=== PATIENT | female | born 1935 | race Caucasian/White ===

== ENCOUNTER → 2017-03-13 | Outpatient (CLI) | payer MEDICARE ==
--- NOTE | 2017-03-14 08:52 | XR ---
EXAMINATION TYPE: XR sinus DATE OF EXAM: 03/13/2017 CLINICAL HISTORY: Facial pain , headache. TECHNIQUE: [place], [place], and lateral image of the skull are obtained. COMPARISON: None. FINDINGS: Mucosal thickening involving the maxillary sinuses and ethmoid air cells. Frontal sinus jb ewhat hypoplastic. Osseous structures intact. No air-fluid levels. IMPRESSION: 1. Correlate for chronic sinusitis.
== END | disposition home or self-care (01) ==
LOC: RADXRMAIN 15:47
PROVIDERS: ATTEND Family Medicine
DX: J01.90 Acute sinusitis, unspecified (principal)
CPT/HCPCS: 70220

== ENCOUNTER 2017-08-10 20:26 | Observation (INO) | payer MEDICARE ==
[2017-08-10] MEDS ORDERED: SODIUM CHLORIDE 0.9% 1,000 ML IV STA (21:32)
[2017-08-10 21:50] LABS: Basophils # (A) 0.1 k/uL (0-0.2); Basophils % (A) 1 %; Eosinophils # (A) 0.2 k/uL (0-0.7); Eosinophils % (A) 2 %; HCT 36.8 % (34.0-46.0); HGB 12.1 gm/dL (11.4-16.0); Lymphocytes # (A) 1.3 k/uL (1.0-4.8); Lymphocytes % (A) 13 %; MCH 27.4 pg (25.0-35.0); Mean Platelet Volume 6.9; Monocytes # (A) 0.7 k/uL (0-1.0); Monocytes % (A) 7 %; Neutrophils # (A) 7.7 k/uL (1.3-7.7); Neutrophils % (A) 76 %; Platelet Count 407 k/uL (150-450); RBC 4.44 m/uL (3.80-5.40); WBC 10.1 k/uL (3.8-10.6)
--- NOTE | 2017-08-10 21:56 | XR ---
EXAMINATION: XR chest 2V DATE AND TIME: 08/10/2017 9:51 PM ORDERING PROVIDER: Kelton Collazo DO CLINICAL INDICATION: Weakness syncope TECHNIQUE: PA and 2 lateral views COMPARISON: None. DESCRIPTION: Pacemaker noted, and EKG leads. The cardiac silhouette is not enlarged. Right paratracheal dense calcifications consistent with healed granulomatous process; calcified pulmo nary nodules are also noted, also consistent with healed granulomatous process. The lungs are otherwise clear and well expanded. The pleural spaces are negative. The skeletal structures are negative for acute findings. The soft tissues are unremarkable. IMPRESSION: NO ACUTE RADIOGRAPHIC PROCESS.
[2017-08-10 22:08] LABS: D-Dimer 2.25 mg/L FEU (<0.60); Partial Thromboplastin Time 22.2 sec (22.0-30.0); Prothrombin Time 9.6 sec (9.0-12.0)
[2017-08-10 22:19] LABS: ALT 23 U/L (9-52); AST 47 U/L (14-36); Albumin 3.6 g/dL (3.5-5.0); Alkaline Phosphatase 52 U/L (38-126); Anion Gap 12 mmol/L; Blood Urea Nitrogen 24 mg/dL (7-17); Calcium 9.1 mg/dL (8.4-10.2); Carbon Dioxide 28 mmol/L (22-30); Chloride 96 mmol/L (98-107); Glucose 139 mg/dL (74-99); Phosphorus 5.2 mg/dL (2.5-4.5); Potassium 4.9 mmol/L (3.5-5.1); Sodium 136 mmol/L (137-145); Total Bilirubin 0.5 mg/dL (0.2-1.3); Total Protein 6.3 g/dL (6.3-8.2)
[2017-08-10 22:28] LABS: Creatine Kinase 81 U/L (30-135)
--- NOTE | 2017-08-10 22:30 | ED ---
General Adult HPI - General Chief complaint: Syncope Stated complaint: syncope Time Seen by Provider: 08/10/17 21:31 Source: patient, RN notes reviewed, old records reviewed Mode of arrival: EMS Limitations: no limitations - History of Present Illness Initial comments: This is an 81-year-old female ER for evaluation regards to syncopal event. Patient has history of pacemaker for unknown reason, family states patient is grossly secondary syncopal events. Patient has no syncope since original event. Denies headache chest pain shortness of breath or abdominal pain. Patient states her diet nap been decreased today. She does not have any complaints currently. - Related Data Home Medications Medication Instructions Recorded Confirmed Calcium Complete 1 tab PO BID 10/21/13 08/10/17 Cyanocobalamin [Vitamin B-12] 500 mcg PO DAILY 10/21/13 08/10/17 Fish Oil/Dha/Epa [Fish Oil 1,200 1,000 mg PO DAILY 10/21/13 08/10/17 mg Fish Oil] Folic Acid 1 mg PO HS 10/21/13 08/10/17 L.acidoph/B.long/L.plant/B.lac 1 cap PO DAILY 10/21/13 08/10/17 [Probiotic Acidophilus Beads] Multivitamin [Multivitamins] 1 tab PO DAILY 10/21/13 08/10/17 Pyridoxine [Vitamin B-6] 50 mg PO DAILY 10/21/13 08/10/17 Ibuprofen [Motrin] 200 mg PO Q4H 10/22/13 08/10/17 Magnesium Gluconate [Magonate] 500 mg PO DAILY 03/17/15 08/10/17 Potassium 99 mg PO DAILY 03/17/15 08/10/17 Minocycline HCl 100 mg PO MOWEFR 08/10/17 08/10/17 Turmeric Root Extract [Turmeric] 500 mg PO DAILY 08/10/17 08/10/17 predniSONE 5 mg PO HS 08/10/17 08/11/17 Allergies Allergy/AdvReac Type Severity Reaction Status Date / Time celecoxib [From Celebrex] AdvReac Swelling Verified 08/10/17 20:49 methotrexate AdvReac Unknown Verified 08/10/17 20:49 Penicillins AdvReac Rash/Hives Verified 08/11/17 01:25 Review of Systems ROS Statement: Those systems with pertinent positive or pertinent negative responses have been documented in the HPI. ROS Other: All systems not noted in ROS Statement are negative. Past Medical History Past Medical History: Rheumatoid Arthritis (RA) Additional Past Medical History / Comment(s): hx arrhythmia/bradycardia, arthritis, Pacemaker, UTI History of Any Multi-Drug Resistant Organisms: None Reported Past Surgical History: Cholecystectomy, Hysterectomy, Pacemaker, Tonsillectomy Additional Past Surgical History / Comment(s): knee surgery jeremy, thyroid surgery (nodule on parathyroid removed) Past Anesthesia/Blood Transfusion Reactions: No Reported Reaction Type of Cardiac Device: Unknown Device Placement Date:: unknown Past Psychological History: Anxiety Smoking Status: Former smoker Past Alcohol Use History: None Reported Past Drug Use History: None Reported - Past Family History Mother Family Medical History: Dementia, Diabetes Mellitus Brother(s) Family Medical History: Dementia, Diabetes Mellitus General Exam Limitations: no limitations General appearance: alert, in no apparent distress Head exam: Present: atraumatic, normocephalic, normal inspection Eye exam: Present: normal appearance, PERRL, EOMI. Absent: scleral icterus, conjunctival injection, periorbital swelling ENT exam: Present: normal exam, mucous membranes moist Neck exam: Present: normal inspection. Absent: tenderness, meningismus, lymphadenopathy Respiratory exam: Present: normal lung sounds bilaterally. Absent: respiratory distress, wheezes, rales, rhonchi, stridor Cardiovascular Exam: Present: regular rate, normal rhythm, normal heart sounds. Absent: systolic murmur, diastolic murmur, rubs, gallop, clicks GI/Abdominal exam: Present: soft, normal bowel sounds. Absent: distended, tenderness, guarding, rebound, rigid Extremities exam: Present: normal inspection, full ROM, normal capillary refill. Absent: tenderness, pedal edema, joint swelling, calf tenderness Back exam: Present: normal inspection Neurological exam: Present: alert, oriented X3, CN II-XII intact Psychiatric exam: Present: normal affect, normal mood Skin exam: Present: warm, dry, intact, normal color. Absent: rash Course Vital Signs 08/10/17 08/10/17 08/10/17 20:33 20:45 22:38 Temperature 98.2 F 97.8 F Pulse Rate 89 71 88 Respiratory 18 18 18 Rate Blood Pressure 141/89 143/68 130/95 O2 Sat by Pulse 98 98 97 Oximetry 08/11/17 00:56 Temperature 97.3 F L Pulse Rate 79 Respiratory 18 Rate Blood Pressure 147/67 O2 Sat by Pulse 98 Oximetry - Reevaluation(s) Reevaluation #1: Unable to interrogate pacemaker here at this time. Patient pacemaker company is called and they will interrogate in the morning Reevaluation #2: main complaint is diffuse body pain, no episodes of syncope here in the ER EKG Findings - EKG Comments: EKG Findings:: EKG shows A. fib rate of 73, QRS 90, QTc 409 Medical Decision Making - Medical Decision Making 81 female the ER for evaluation of syncopal event, syncope or on 10 minutes. No acute cause found, patient will be admitted for pacemaker interrogation - Lab Data Result diagrams: 08/10/17 20:45 08/10/17 20:45 Lab Results 08/10/17 08/10/17 08/10/17 Range/Units 20:45 20:45 20:45 WBC 10.1 (3.8-10.6) k/uL RBC 4.44 (3.80-5.40) m/uL Hgb 12.1 (11.4-16.0) gm/dL Hct 36.8 (34.0-46.0) % MCV 83.0 (80.0-100.0) fL MCH 27.4 (25.0-35.0) pg MCHC 33.0 (31.0-37.0) g/dL RDW 13.0 (11.5-15.5) % Plt Count 407 (150-450) k/uL Neutrophils % 76 % Lymphocytes % 13 % Monocytes % 7 % Eosinophils % 2 % Basophils % 1 % Neutrophils # 7.7 (1.3-7.7) k/uL Lymphocytes # 1.3 (1.0-4.8) k/uL Monocytes # 0.7 (0-1.0) k/uL Eosinophils # 0.2 (0-0.7) k/uL Basophils # 0.1 (0-0.2) k/uL PT (9.0-12.0) sec INR (<1.2) APTT (22.0-30.0) sec D-Dimer (<0.60) mg/L FEU Sodium 136 L (137-145) mmol/L Potassium 4.9 (3.5-5.1) mmol/L Chloride 96 L (98-107) mmol/L Carbon Dioxide 28 (22-30) mmol/L Anion Gap 12 mmol/L BUN 24 H (7-17) mg/dL Creatinine 0.80 (0.52-1.04) mg/dL Est GFR (MDRD) Af Amer >60 (>60 ml/min/1.73 sqM) Est GFR (MDRD) Non-Af >60 (>60 ml/min/1.73 sqM) Glucose 139 H (74-99) mg/dL Calcium 9.1 (8.4-10.2) mg/dL Phosphorus 5.2 H (2.5-4.5) mg/dL Magnesium 2.3 (1.6-2.3) mg/dL Total Bilirubin 0.5 (0.2-1.3) mg/dL AST 47 H (14-36) U/L ALT 23 (9-52) U/L Alkaline Phosphatase 52 (38-126) U/L Total Creatine Kinase 81 (30-135) U/L CK-MB (CK-2) 1.3 (0.0-2.4) ng/mL CK-MB (CK-2) Rel Index 1.6 Troponin I <0.012 (0.000-0.034) ng/mL Total Protein 6.3 (6.3-8.2) g/dL Albumin 3.6 (3.5-5.0) g/dL Urine Color Urine Appearance (Clear) Urine pH (5.0-8.0) Ur Specific Band[place] (1.001-1.035) Urine Protein (Negative) Urine Glucose (UA) (Negative) Urine Ketones (Negative) Urine Blood (Negative) Urine Nitrite (Negative) Urine Bilirubin (Negative) Urine Urobilinogen (<2.0) mg/dL Ur Leukocyte Esterase (Negative) Urine RBC (0-5) /hpf Urine WBC (0-5) /hpf Urine Bacteria (None) /hpf Hyaline Casts (0-2) /lpf Urine Mucus (None) /hpf Urine Yeast (Budding) (None) /hpf 08/10/17 08/10/17 Range/Units 20:45 22:48 WBC (3.8-10.6) k/uL RBC (3.80-5.40) m/uL Hgb (11.4-16.0) gm/dL Hct (34.0-46.0) % MCV (80.0-100.0) fL MCH (25.0-35.0) pg MCHC (31.0-37.0) g/dL RDW (11.5-15.5) % Plt Count (150-450) k/uL Neutrophils % % Lymphocytes % % Monocytes % % Eosinophils % % Basophils % % Neutrophils # (1.3-7.7) k/uL Lymphocytes # (1.0-4.8) k/uL Monocytes # (0-1.0) k/uL Eosinophils # (0-0.7) k/uL Basophils # (0-0.2) k/uL PT 9.6 (9.0-12.0) sec INR 1.0 (<1.2) APTT 22.2 (22.0-30.0) sec D-Dimer 2.25 H (<0.60) mg/L FEU Sodium (137-145) mmol/L Potassium (3.5-5.1) mmol/L Chloride (98-107) mmol/L Carbon Dioxide (22-30) mmol/L Anion Gap mmol/L BUN (7-17) mg/dL Creatinine (0.52-1.04) mg/dL Est GFR (MDRD) Af Amer (>60 ml/min/1.73 sqM) Est GFR (MDRD) Non-Af (>60 ml/min/1.73 sqM) Glucose (74-99) mg/dL Calcium (8.4-10.2) mg/dL Phosphorus (2.5-4.5) mg/dL Magnesium (1.6-2.3) mg/dL Total Bilirubin (0.2-1.3) mg/dL AST (14-36) U/L ALT (9-52) U/L Alkaline Phosphatase (38-126) U/L Total Creatine Kinase (30-135) U/L CK-MB (CK-2) (0.0-2.4) ng/mL CK-MB (CK-2) Rel Index Troponin I (0.000-0.034) ng/mL Total Protein (6.3-8.2) g/dL Albumin (3.5-5.0) g/dL Urine Color Yellow Urine Appearance Clear (Clear) Urine pH 7.5 (5.0-8.0) Ur Specific [place] 1.007 (1.001-1.035) Urine Protein Negative (Negative) Urine Glucose (UA) Negative (Negative) Urine Ketones Negative (Negative) Urine Blood Negative (Negative) Urine Nitrite Negative (Negative) Urine Bilirubin Negative (Negative) Urine Urobilinogen <2.0 (<2.0) mg/dL Ur Leukocyte Esterase Small H (Negative) Urine RBC <1 (0-5) /hpf Urine WBC 12 H (0-5) /hpf Urine Bacteria Rare H (None) /hpf Hyaline Casts 1 (0-2) /lpf Urine Mucus Rare H (None) /hpf Urine Yeast (Budding) Occasional H (None) /hpf - Radiology Data Radiology results: report reviewed (Chest x-ray and CTA chest are negative), image reviewed Disposition Clinical Impression: Vasovagal syncope, Syncope, Encounter for interrogation of cardiac pacemaker Disposition: ADMITTED IP TO THIS [facility] Condition: Undetermined
[2017-08-10 22:40] LABS: Creatine Kinase MB 1.3 ng/mL (0.0-2.4); Troponin I <0.012 ng/mL (0.000-0.034)
[2017-08-10 23:00] LABS: Appearance,Urine Clear (Clear); Bacteria,Urine Rare /hpf; Bilirubin,Urine Negative (Negative); Blood,Urine Negative (Negative); Budding Yeast,Urine Occasional /hpf; Color,Urine Yellow; Glucose,Urine (UA) Negative (Negative); Hyaline Casts,Urine 1 /lpf (0-2); Ketones,Urine Negative (Negative); Leukocyte Esterase,Urine Small (Negative); Mucus,Urine Rare /hpf; PH, Urine 7.5 (5.0-8.0); Protein,Urine Negative (Negative); RBC,Urine <1 /hpf (0-5); Specific Gravity,Urine 1.007 (1.001-1.035); Urobilinogen,Urine <2.0 mg/dL (<2.0); WBC,Urine 12 /hpf (0-5)
[2017-08-10] MEDS ORDERED: NITROGLYCERIN SL TABS 0.4 MG TAB SUBLINGUAL PRN (23:34)
[2017-08-10] MEDS ORDERED: RX INFO: IV CONTRAST WAS GIVEN 1 EACH MISC MISCELLANE PRN (23:34)
[2017-08-10] MEDS ORDERED: MORPHINE SULFATE 4 MG/ML SYRINGE IVP STA (23:35)
[2017-08-10] MEDS ORDERED: ACETAMINOPHEN TAB 325 MG TAB PO STA (23:51)
[2017-08-10] MEDS ORDERED: KETOROLAC 30 MG/ML 1 ML VIAL IVP STA (23:59)
--- NOTE | 2017-08-11 00:33 | CT ---
EXAMINATION TYPE: CT angio chest DATE OF EXAM: 08/11/2017 12:18 AM COMPARISON: NONE HISTORY: chest pain and elevated D dimer CT DLP: 329.50 mGycm Automated exposure control for dose reduction was used. CONTRAST: CTA scan of the thorax is performed with IV Contrast, patient injected with 75 mL of Omnipaque 350, p ulmonary embolism protocol. There are 3-D post processed images.. FINDINGS: There is coarse subpleural interstitial density at the posterior lung bases. There is no pleural effu sunil. There is no pericardial effusion. Heart is slightly enlarged. Thoracic aorta is atheromatous. T here is mild aneurysm of ascending aorta that measures 4.5 cm. Descending aorta measures 3 cm. There is no mediastinal adenopathy. I see no filling defects in the pulmonary arteries. There is no evidence of a pulmonary mass. There a re no hilar masses. There is spurring in the thoracic spine. IMPRESSION: NO EVIDENCE OF PULMONARY EMBOLISM. MILD ANEURYSM OF THE ASCENDING AORTA. PULMONARY FIBROTIC CHANGES.
[2017-08-11] MEDS ORDERED: MORPHINE SULFATE 4 MG/ML SYRINGE IVP STA (00:48)
[2017-08-11 01:35] VITALS: BMI 22.8
[2017-08-11] MEDS: traMADol 50 MG TAB PO PRN ×2 (06:04→10:11)
[2017-08-11 08:07] VITALS: PULSE 71
[2017-08-11 11:11] VITALS: RESP 16; TEMP 97.6
[2017-08-11] MEDS ORDERED: SODIUM CHLORIDE 0.9% 1,000 ML IV ONE (11:50)
[2017-08-11 13:39] VITALS: BP 114/66
--- NOTE | 2017-08-11 14:40 | P.HPIM ---
History of Present Illness H&P Date: 08/11/17 Chief Complaint: Syncope HISTORY AND PHYSICAL AND DISCHARGE SUMMARY: This is an 81-year-old female patient of Dr. Lao with past medical history of advanced rheumatoid arthritis on prednisone and minocycline, chronic anemia, history of small bowel obstruction. Patient was with her son at home and sitting at the dinner table when she seemed to drift up in lean to the right. There was no fall or trauma. She did not hit her head. They used her med alert and the directions were for her son to start compressions which she did lightly. EMS arrived and 10 minutes and found her blood sugar to be 181 and blood pressure 60/40. She came into [facility] emergency center and mental status returned to normal. She had no residual weakness. Patient thought that she was knocked out for about 1 minute. She denies having any nausea vomiting or diarrhea but didn't drink very much for the day before. There was no incontinence of urine and no seizure activity noted. She was given 1 L of IV fluids in the emergency center and admitted to the selective care unit. Chest x-ray showed no acute process. CTA of the chest shows no pulmonary embolism. Mild aneurysm of the ascending aorta. Pulmonary fibrotic changes. EKG was atrial fibrillation rate controlled. Patient has been seen by cardiology and pacemaker has been interrogated. Troponins have been negative on 3 draws. Blood pressure is running on the low side and patient is not on antihypertensives. Patient will be given 1 L of fluid and discharge home today. Patient happens to mention that she has a wound on her right second toe. Full culture will be obtained and patient would be discharged home on Bactrim and follow-up with Dr. Lao next week. Patient will be discharged home today in stable condition. Patient is requesting prescription for tramadol which will be provided. Discharge Medication List Calcium Complete 1 tab PO BID 10/21/13 [History] Cyanocobalamin [Vitamin B-12] 500 mcg PO DAILY 10/21/13 [History] Fish Oil/Dha/Epa [Fish Oil 1,200 mg Fish Oil] 1,000 mg PO DAILY 10/21/13 [ History] Folic Acid 1 mg PO HS 10/21/13 [History] L.acidoph/B.long/L.plant/B.lac [Probiotic Acidophilus Beads] 1 cap PO DAILY 10/30 [History] Multivitamin [Multivitamins] 1 tab PO DAILY 10/21/13 [History] Pyridoxine [Vitamin B-6] 50 mg PO DAILY 10/21/13 [History] Ibuprofen [Motrin] 200 mg PO Q4H 10/22/13 [History] Magnesium Gluconate [Magonate] 500 mg PO DAILY 03/17/15 [History] Potassium 99 mg PO DAILY 03/17/15 [History] Minocycline HCl 100 mg PO MOWEFR 08/10/17 [History] Turmeric Root Extract [Turmeric] 500 mg PO DAILY 08/10/17 [History] predniSONE 5 mg PO HS 08/10/17 [History] Sulfamethox-Tmp 800-160Mg [Bactrim DS 800-160 mg] 1 tab PO Q12HR #14 tab [Rx] traMADol HCL [Ultram] 50 mg PO Q6HR PRN #28 tab 08/11/17 [Rx] Review of Systems All systems: negative Constitutional: Denies anorexia, Denies chills, Denies fatigue, Denies fever, Denies poor appetite Eyes: denies blurred vision, denies pain Ears, nose, mouth and throat: Denies headache, Denies sore throat Cardiovascular: Reports syncope, Denies chest pain, Denies decreased exercise tolerance, Denies dyspnea on exertion, Denies leg edema, Denies lightheadedness , Denies shortness of breath Respiratory: Denies cough, Denies cough with sputum, Denies dyspnea, Denies excessive sputum, Denies hemoptysis, Denies home oxygen, Denies wheezing Gastrointestinal: Denies abdominal pain, Denies diarrhea, Denies nausea, Denies vomiting Genitourinary: Denies dysuria, Denies hematuria Musculoskeletal: Denies myalgias Integumentary: Reports wounds, Denies pruritus, Denies rash Neurological: Denies numbness, Denies weakness Psychiatric: Denies anxiety, Denies depression Endocrine: Denies fatigue, Denies weight change Past Medical History Past Medical History: Rheumatoid Arthritis (RA) Additional Past Medical History / Comment(s): hx arrhythmia/bradycardia, arthritis, Pacemaker, UTI History of Any Multi-Drug Resistant Organisms: None Reported Past Surgical History: Cholecystectomy, Hysterectomy, Pacemaker, Tonsillectomy Additional Past Surgical History / Comment(s): knee surgery jeremy, thyroid surgery (nodule on parathyroid removed) Past Anesthesia/Blood Transfusion Reactions: No Reported Reaction Type of Cardiac Device: Unknown Device Placement Date:: unknown Past Psychological History: Anxiety Smoking Status: Former smoker Past Alcohol Use History: None Reported Past Drug Use History: None Reported Additional Drug Use History / Comment(s): H was smoking many years ago. No alcohol use or abuse. Patient is and lives alone. - Past Family History Mother Family Medical History: Dementia, Diabetes Mellitus Brother(s) Family Medical History: Dementia, Diabetes Mellitus Medications and Allergies Home Medications Medication Instructions Recorded Confirmed Type Calcium Complete 1 tab PO BID 10/21/13 08/10/17 History Cyanocobalamin [Vitamin B-12] 500 mcg PO DAILY 10/21/13 08/10/17 History Fish Oil/Dha/Epa [Fish Oil 1,200 1,000 mg PO DAILY 10/21/13 08/10/17 History mg Fish Oil] Folic Acid 1 mg PO HS 10/21/13 08/10/17 History L.acidoph/B.long/L.plant/B.lac 1 cap PO DAILY 10/21/13 08/10/17 History [Probiotic Acidophilus Beads] Multivitamin [Multivitamins] 1 tab PO DAILY 10/21/13 08/10/17 History Pyridoxine [Vitamin B-6] 50 mg PO DAILY 10/21/13 08/10/17 History Ibuprofen [Motrin] 200 mg PO Q4H 10/22/13 08/10/17 History Magnesium Gluconate [Magonate] 500 mg PO DAILY 03/17/15 08/10/17 History Potassium 99 mg PO DAILY 03/17/15 08/10/17 History Minocycline HCl 100 mg PO MOWEFR 08/10/17 08/10/17 History Turmeric Root Extract [Turmeric] 500 mg PO DAILY 08/10/17 08/10/17 History predniSONE 5 mg PO HS 08/10/17 08/11/17 History Sulfamethox-Tmp 800-160Mg [Bactrim 1 tab PO Q12HR #14 tab 08/11/17 Rx DS 800-160 mg] traMADol HCL [Ultram] 50 mg PO Q6HR PRN #28 tab 08/11/17 Rx Allergies Allergy/AdvReac Type Severity Reaction Status Date / Time celecoxib [From Celebrex] AdvReac Swelling Verified 08/10/17 20:49 methotrexate AdvReac Unknown Verified 08/10/17 20:49 Penicillins AdvReac Rash/Hives Verified 08/11/17 01:25 Physical Exam Vitals: Vital Signs Temp Pulse Pulse Resp BP BP BP 08/11/17 13:38 124/66 111/61 08/11/17 11:08 97.6 F 71 16 92/49 08/11/17 08:50 08/11/17 08:00 97.4 F L 71 14 08/11/17 07:58 78 18 91/49 83/44 08/11/17 04:00 97.3 F L 72 16 08/11/17 00:56 97.3 F L 79 18 147/67 08/10/17 22:38 97.8 F 88 18 130/95 08/10/17 20:45 71 18 143/68 08/10/17 20:33 98.2 F 89 18 141/89 BP BP Pulse Ox 08/11/17 13:38 114/66 08/11/17 11:08 98 08/11/17 08:50 97 08/11/17 08:00 102/48 97 08/11/17 07:58 102/48 08/11/17 04:00 113/58 97 08/11/17 00:56 98 08/10/17 22:38 97 08/10/17 20:45 98 08/10/17 20:33 98 Intake and Output 08/10/17 08/11/17 08/11/17 22:59 06:59 14:59 Intake Total 540 Balance 540 Intake: Oral 540 Other: Voiding Method Toilet Toilet Bedpan # Voids 1 Weight 63.503 kg 64.4 kg - Constitutional General appearance: average body habitus, cooperative, no disheveled, no mild distress, no morbidly obese, no no acute distress - EENT Eyes: PERRLA - Respiratory Respiratory: bilateral: CTA - Cardiovascular Rhythm: irregularly irregular Heart sounds: normal: S1, S2 - Gastrointestinal General gastrointestinal: no absent bowel sounds, no decreased bowel sounds, no distended, no hepatomegaly, no hyperactive bowel sounds, normal bowel sounds, no organomegaly, no rigid, no scaphoid, soft, no splenomegaly, no tenderness, no umbilical hernia, no ventral hernia - Integumentary Integumentary: ulcer - Neurologic Neurologic: CNII-XII intact - Psychiatric Psychiatric: A&O x's 3, appropriate affect, intact judgment & insight Results CBC & Chem 7: 08/10/17 20:45 08/10/17 20:45 Labs: Abnormal Lab Results - Last 24 Hours (Table) 08/10/17 08/10/17 08/10/17 Range/Units 20:45 20:45 22:48 D-Dimer 2.25 H (<0.60) mg/L FEU Sodium 136 L (137-145) mmol/L Chloride 96 L (98-107) mmol/L BUN 24 H (7-17) mg/dL Glucose 139 H (74-99) mg/dL Phosphorus 5.2 H (2.5-4.5) mg/dL AST 47 H (14-36) U/L Ur Leukocyte Esterase Small H (Negative) Urine WBC 12 H (0-5) /hpf Urine Bacteria Rare H (None) /hpf Urine Mucus Rare H (None) /hpf Urine Yeast (Budding) Occasional H (None) /hpf Thrombosis Risk Factor Assmnt - Choose All That Apply Any of the Below Risk Factors Present?: No Each Risk Factor Represents 3 Points: Age 75 years or older Other congenital or acquired thrombophilia - If yes, enter type in comment: No Thrombosis Risk Factor Assessment Total Risk Factor Score: 3 Thrombosis Risk Factor Assessment Level: Moderate Risk Assessment and Plan Plan: 1. Syncopal episode most likely from vasovagal. Pacemaker has been interrogated. Patient had full return to consciousness, no seizure activity was noted. Patient is noted to have hypotension. Patient will be provided 1 L IV fluids and then discharged home today. 2. Advanced rheumatoid arthritis currently on no site clean and prednisone, stable. 3. Chronic back pain. Patient's been started on tramadol. 4. History of chronic atrial fibrillation status post pacemaker, stable. 5. Right foot wound second toe. Patient placed on Bactrim and culture obtained. Patient placed as an observation status. Discharge plan: Return home Impression and plan of care have been directed as dictated by the signing physician. Radha Busch nurse practitioner acting as scribe for signing physician.
== END 2017-08-11 13:37 | disposition home or self-care (01) ==
LOC: EC 20:26 → 6SEL 23:34
PROVIDERS: ADMIT Internal Medicine; ATTEND Internal Medicine
DX: R55 Syncope and collapse (principal); Z45.018 Encounter for adjustment and management of other part of cardiac pacemaker; I95.9 Hypotension, unspecified; M06.9 Rheumatoid arthritis, unspecified; G89.29 Other chronic pain; M54.9 Dorsalgia, unspecified; I48.2 Chronic atrial fibrillation; S90.934A Unspecified superficial injury of right lesser toe(s), initial encounter; M19.90 Unspecified osteoarthritis, unspecified site; F41.9 Anxiety disorder, unspecified; D64.9 Anemia, unspecified; I71.2 Thoracic aortic aneurysm, without rupture; R00.1 Bradycardia, unspecified; Z79.2 Long term (current) use of antibiotics; Z79.1 Long term (current) use of non-steroidal anti-inflammatories (NSAID); Z79.52 Long term (current) use of systemic steroids; Z79.899 Other long term (current) drug therapy; Z88.0 Allergy status to penicillin; Z88.8 Allergy status to other drugs, medicaments and biological substances; Z87.440 Personal history of urinary (tract) infections; Z87.891 Personal history of nicotine dependence; Z83.3 Family history of diabetes mellitus; Z82.0 Family history of epilepsy and other diseases of the nervous system
CPT/HCPCS: 99285; 93288; 96361 ×2; 96374; 96375 ×2; 36415; 94760; 93005; 85379; 80053; 82550; 82553; 83735; 84100; 84484 ×2; 85025; 85610; 85730; 81001; 87070; 87086; 87205; 87077 ×2; 87186 ×2; 71046; 71275; G0378 ×2; J2270; Q9967; J1885

== ENCOUNTER 2018-08-08 20:00 | Emergency (ER) | payer MEDICARE, OTHER ==
[2018-08-08] MEDS ORDERED: SODIUM CHLORIDE 0.9% 500 ML 500 ML IV STA (21:35)
[2018-08-08] MEDS ORDERED: SODIUM CHLORIDE 0.9% 1,000 ML IV STA (21:35)
[2018-08-08 21:56] LABS: Basophils # (A) 0.1 k/uL (0-0.2); Basophils % (A) 1 %; Eosinophils # (A) 0.3 k/uL (0-0.7); Eosinophils % (A) 3 %; HCT 44.1 % (34.0-46.0); HGB 14.3 gm/dL (11.4-16.0); Lymphocytes # (A) 1.4 k/uL (1.0-4.8); Lymphocytes % (A) 14 %; MCH 29.3 pg (25.0-35.0); MCHC 32.4 g/dL (31.0-37.0); MCV 90.5 fL (80.0-100.0); Monocytes # (A) 0.5 k/uL (0-1.0); Monocytes % (A) 5 %; Neutrophils # (A) 7.6 k/uL (1.3-7.7); Neutrophils % (A) 76 %; Platelet Count 273 k/uL (150-450); RBC 4.87 m/uL (3.80-5.40); RDW 14.4 % (11.5-15.5)
[2018-08-08 22:05] LABS: ALT 32 U/L (9-52); AST 29 U/L (14-36); Albumin 3.7 g/dL (3.5-5.0); Alkaline Phosphatase 74 U/L (38-126); Anion Gap 9 mmol/L; Blood Urea Nitrogen 19 mg/dL (7-17); Calcium 8.8 mg/dL (8.4-10.2); Carbon Dioxide 28 mmol/L (22-30); Chloride 93 mmol/L (98-107); Glucose 147 mg/dL (74-99); Magnesium 2.2 mg/dL (1.6-2.3); Potassium 4.4 mmol/L (3.5-5.1); Sodium 130 mmol/L (137-145); Total Bilirubin 0.6 mg/dL (0.2-1.3); Total Protein 6.4 g/dL (6.3-8.2)
[2018-08-08 22:08] LABS: Creatine Kinase 50 U/L (30-135)
[2018-08-08 22:13] LABS: Appearance,Urine Clear (Clear); Bilirubin,Urine Negative (Negative); Blood,Urine Negative (Negative); Color,Urine Light Yellow; Glucose,Urine (UA) Negative (Negative); Ketones,Urine Negative (Negative); Leukocyte Esterase,Urine Negative (Negative); Nitrite,Urine Negative (Negative); Protein,Urine Negative (Negative); Specific Gravity,Urine 1.008 (1.001-1.035); Urobilinogen,Urine <2.0 mg/dL (<2.0)
[2018-08-08 22:14] LABS: INR 0.9 (<1.2); Prothrombin Time 9.7 sec (9.0-12.0)
[2018-08-08 22:16] LABS: Partial Thromboplastin Time 21.2 sec (22.0-30.0)
[2018-08-08 22:21] LABS: Creatine Kinase MB 1.1 ng/mL (0.0-2.4); Troponin I <0.012 ng/mL (0.000-0.034)
--- NOTE | 2018-08-08 23:07 | ED ---
General Adult HPI - General Chief complaint: Syncope Stated complaint: Syncope Time Seen by Provider: 08/08/18 20:42 Source: patient, family, EMS, RN notes reviewed, old records reviewed Mode of arrival: ambulatory Limitations: no limitations - History of Present Illness Initial comments: chief complaint and history of present illness this is an 82-year-old female who while having dinner her head fell forward. Her family member stated that he did not appears though she is breathing deeper to the floor he started doing CPR he states that he push on her chest approximately 100 times she took a breath and yawned and came to. She has amnesia for the event. Family reports this is the fifth time this happened in several years the last time was one year ago. The patient does have an on demand pacemaker. Patient denies any headache currently no chest pain palpitations or shortness of breath. Patient states her significant problems in the past as well as been hyponatremia. - Related Data Home Medications Medication Instructions Recorded Confirmed Acetaminophen Tab [Tylenol Tab] 500 - 1,000 mg PO Q6H PRN 08/08/18 08/08/18 Latanoprost [Xalatan 0.005%] 1 drop LEFT EYE DAILY 08/08/18 08/08/18 Timolol 0.5% Ophth Soln [Timoptic 1 drop BOTH EYES DAILY 08/08/18 08/08/18 0.5% Ophth Soln] predniSONE 5 mg PO QID 08/08/18 08/08/18 Allergies Allergy/AdvReac Type Severity Reaction Status Date / Time celecoxib [From Celebrex] AdvReac Swelling Verified 08/08/18 20:28 methotrexate AdvReac Unknown Verified 08/08/18 20:28 Penicillins AdvReac Rash/Hives Verified 08/08/18 20:28 Review of Systems ROS Statement: Those systems with pertinent positive or pertinent negative responses have been documented in the HPI. review of systems. Currently the patient is alert and oriented. Has no complaints. States she was unaware of the events that happened at home. She is denying headache or visual acuity changes no chest pain shortness of breath no GI/ problems no neuro deficits. Past medical problems significant for rheumatoid arthritis and history of arrhythmia and bradycardia for which she has an on demand pacemaker. The patient's surgeries include cholecystectomy, hysterectomy, atrial pacemaker on demand, tonsillectomy and bilateral knee surgeries. Family history no cancers. Patient has ALLERGIES to Celebrex, methotrexate and penicillin. She quit smoking 30 years ago denies alcohol use. ROS Other: All systems not noted in ROS Statement are negative. Past Medical History Past Medical History: Rheumatoid Arthritis (RA) Additional Past Medical History / Comment(s): hx arrhythmia/bradycardia, arthritis, Pacemaker, UTI, low sodium History of Any Multi-Drug Resistant Organisms: None Reported Past Surgical History: Cholecystectomy, Hysterectomy, Pacemaker, Tonsillectomy Additional Past Surgical History / Comment(s): knee surgery jeremy, thyroid surgery (nodule on parathyroid removed) Past Anesthesia/Blood Transfusion Reactions: No Reported Reaction Type of Cardiac Device: Unknown Device Placement Date:: unknown Past Psychological History: Anxiety Smoking Status: Former smoker Past Alcohol Use History: None Reported Past Drug Use History: None Reported - Past Family History Mother Family Medical History: Dementia, Diabetes Mellitus Brother(s) Family Medical History: Dementia, Diabetes Mellitus General Exam - General Exam Comments Initial Comments: General: The patient is awake and alert, in no distress, and does not appear acutely ill. vital signs shows a temperature 97.8 pulse 55 respiratory rate 18 pulse ox 132/69 and room pulse ox of 98. Eye: Pupils are equal, round and reactive to light, extra-ocular movements are intact ; there is normal conjunctiva bilaterally. No signs of icterus. Ears, nose, mouth and throat: There are moist mucous membranes and no oral lesions. Neck: The neck is supple, there is no tenderness , no carotid bruit. Cardiovascular: mildly irregular rhythm.. No murmur, rub or gallop is appreciated. Respiratory: Lungs are clear to auscultation, respirations are non-labored, breath sounds are equal. No wheezes, stridor, rales, or rhonchi. Gastrointestinal: Soft, non-distended, non-tender abdomen without masses or organomegaly noted. There is no rebound or guarding present. No CVA tenderness. Bowel sounds are unremarkable. Back: There is no tenderness to palpation in the midline. There is no obvious deformity. No rashes noted. Musculoskeletal: Normal ROM, no tenderness, There is no pedal edema. There is no calf tenderness or swelling. Sensation intact. Neurological: CN II-XII intact, There are no obvious motor or sensory deficits. Coordination appears grossly intact. Speech is normal.no focal or lateralizing signs Skin: Skin is warm and dry and no rashes or lesions are noted. Psychiatric: Cooperative, Limitations: no limitations Course Vital Signs 08/08/18 08/08/18 08/08/18 20:02 21:00 22:00 Temperature 97.8 F Pulse Rate 55 L 75 61 Respiratory 18 20 20 Rate Blood Pressure 132/69 136/75 145/75 O2 Sat by Pulse 98 99 99 Oximetry EKG Findings - EKG Comments: EKG Findings:: EKG was done and reviewed a 2012 showing an atrial sensed ventricular paced rhythm. Rate 72 ID interval 202 QRS 96 QT [address] Zhao Medical Decision Making - Medical Decision Making Medical decision making; 52-year-old female who while having dinner some forward. a family member put her on the floor started doing CPR. He states was between 1 and 2 minutes before she came to. She had one yawn during that time. Soon thereafter she was back to normal. In emergency room the patient examined no acute neuro deficits appreciated. Patient had no complaints. Did not complain of chest discomfort even after having had 100 compressions of CPR by her family member. The patient's EKG showed an atrial sensed ventricular paced rhythm. Unchanged. The patient's labs show white count of 10 hemoglobin 14 hematocrit of 44. The patient has had a chronic history of low sodium today sodium is 1:30. Potassium 4.4 BUN 19 creatinine 0.57 and GFR 87. Glucose 147. Troponin less than 0.012. The patient's urine is clean no signs of infection. I discussed with the patient admission for observation with repeat cardiac enzymes and chest x-ray to be taken but the patient has decided to go home. She was strongly encouraged to follow-up with her family physician and her porcelain waxer. This is her fifth time doing this per family. Family is comfortable to take her home. She is signing out AGAINST MEDICAL ADVICE. - Lab Data Result diagrams: 08/08/18 20:32 08/08/18 20:32 Lab Results 08/08/18 08/08/18 08/08/18 Range/Units 20:32 20:32 20:32 WBC 10.0 (3.8-10.6) k/uL RBC 4.87 (3.80-5.40) m/uL Hgb 14.3 (11.4-16.0) gm/dL Hct 44.1 (34.0-46.0) % MCV 90.5 (80.0-100.0) fL MCH 29.3 (25.0-35.0) pg MCHC 32.4 (31.0-37.0) g/dL RDW 14.4 (11.5-15.5) % Plt Count 273 (150-450) k/uL Neutrophils % 76 % Lymphocytes % 14 % Monocytes % 5 % Eosinophils % 3 % Basophils % 1 % Neutrophils # 7.6 (1.3-7.7) k/uL Lymphocytes # 1.4 (1.0-4.8) k/uL Monocytes # 0.5 (0-1.0) k/uL Eosinophils # 0.3 (0-0.7) k/uL Basophils # 0.1 (0-0.2) k/uL PT (9.0-12.0) sec INR (<1.2) APTT (22.0-30.0) sec Sodium 130 L (137-145) mmol/L Potassium 4.4 (3.5-5.1) mmol/L Chloride 93 L (98-107) mmol/L Carbon Dioxide 28 (22-30) mmol/L Anion Gap 9 mmol/L BUN 19 H (7-17) mg/dL Creatinine 0.57 (0.52-1.04) mg/dL Est GFR (CKD-EPI)AfAm >90 (>60 ml/min/1.73 sqM) Est GFR (CKD-EPI)NonAf 87 (>60 ml/min/1.73 sqM) Glucose 147 H (74-99) mg/dL Calcium 8.8 (8.4-10.2) mg/dL Magnesium 2.2 (1.6-2.3) mg/dL Total Bilirubin 0.6 (0.2-1.3) mg/dL AST 29 (14-36) U/L ALT 32 (9-52) U/L Alkaline Phosphatase 74 (38-126) U/L Total Creatine Kinase 50 (30-135) U/L CK-MB (CK-2) 1.1 (0.0-2.4) ng/mL CK-MB (CK-2) Rel Index 2.2 Troponin I <0.012 (0.000-0.034) ng/mL Total Protein 6.4 (6.3-8.2) g/dL Albumin 3.7 (3.5-5.0) g/dL Urine Color Urine Appearance (Clear) Urine pH (5.0-8.0) Ur Specific [place] (1.001-1.035) Urine Protein (Negative) Urine Glucose (UA) (Negative) Urine Ketones (Negative) Urine Blood (Negative) Urine Nitrite (Negative) Urine Bilirubin (Negative) Urine Urobilinogen (<2.0) mg/dL Ur Leukocyte Esterase (Negative) 08/08/18 08/08/18 Range/Units 20:32 Unknown WBC (3.8-10.6) k/uL RBC (3.80-5.40) m/uL Hgb (11.4-16.0) gm/dL Hct (34.0-46.0) % MCV (80.0-100.0) fL MCH (25.0-35.0) pg MCHC (31.0-37.0) g/dL RDW (11.5-15.5) % Plt Count (150-450) k/uL Neutrophils % % Lymphocytes % % Monocytes % % Eosinophils % % Basophils % % Neutrophils # (1.3-7.7) k/uL Lymphocytes # (1.0-4.8) k/uL Monocytes # (0-1.0) k/uL Eosinophils # (0-0.7) k/uL Basophils # (0-0.2) k/uL PT 9.7 (9.0-12.0) sec INR 0.9 (<1.2) APTT 21.2 L (22.0-30.0) sec Sodium (137-145) mmol/L Potassium (3.5-5.1) mmol/L Chloride (98-107) mmol/L Carbon Dioxide (22-30) mmol/L Anion Gap mmol/L BUN (7-17) mg/dL Creatinine (0.52-1.04) mg/dL Est GFR (CKD-EPI)AfAm (>60 ml/min/1.73 sqM) Est GFR (CKD-EPI)NonAf (>60 ml/min/1.73 sqM) Glucose (74-99) mg/dL Calcium (8.4-10.2) mg/dL Magnesium (1.6-2.3) mg/dL Total Bilirubin (0.2-1.3) mg/dL AST (14-36) U/L ALT (9-52) U/L Alkaline Phosphatase (38-126) U/L Total Creatine Kinase (30-135) U/L CK-MB (CK-2) (0.0-2.4) ng/mL CK-MB (CK-2) Rel Index Troponin I (0.000-0.034) ng/mL Total Protein (6.3-8.2) g/dL Albumin (3.5-5.0) g/dL Urine Color Light Yellow Urine Appearance Clear (Clear) Urine pH 8.0 (5.0-8.0) Ur Specific [place] 1.008 (1.001-1.035) Urine Protein Negative (Negative) Urine Glucose (UA) Negative (Negative) Urine Ketones Negative (Negative) Urine Blood Negative (Negative) Urine Nitrite Negative (Negative) Urine Bilirubin Negative (Negative) Urine Urobilinogen <2.0 (<2.0) mg/dL Ur Leukocyte Esterase Negative (Negative) Disposition Clinical Impression: Syncopal episodes Disposition: Left Against Medical Advice Condition: Undetermined Instructions (If sedation given, give patient instructions): Syncope (ED), Syncope in Older Adults (ED) Additional Instructions: Change positions slowly, increase fluid intake. Call follow with her family doctor and porcelain waxer. Return emergency room at any time, any emergency room. Change positions slowly as this is when syncopal episodes can happen resulting in a fall causing serious injury. Is patient prescribed a controlled substance at d/c from ED?: No Referrals: Soham Lao DO [Primary Care Provider] - 1-2 days Time of Disposition: 23:35
[2018-08-08] MEDS ORDERED: ACETAMINOPHEN TAB 325 MG TAB PO STA (23:36)
[2018-08-08] MEDS ORDERED: predniSONE 20 MG TAB PO STA (23:36)
[2018-08-09 00:11] VITALS: BP 121/52; PULSE 71; RESP 18; TEMP 98.1
== END 2018-08-08 23:55 | disposition left against medical advice (07) ==
LOC: EC 20:00
DX: R55 Syncope and collapse (principal); Z95.0 Presence of cardiac pacemaker; Z87.891 Personal history of nicotine dependence; Z79.52 Long term (current) use of systemic steroids; Z79.899 Other long term (current) drug therapy; Z88.6 Allergy status to analgesic agent; Z88.8 Allergy status to other drugs, medicaments and biological substances; Z88.0 Allergy status to penicillin
CPT/HCPCS: 36415; 93005; 80053; 82550; 82553; 83735; 84484; 85025; 85610; 85730; 81003; 99285; 96360; 96361; J7512

== ENCOUNTER 2019-02-04 15:10 | Emergency (ER) | payer MEDICARE, OTHER ==
--- NOTE | 2019-02-04 16:43 | ED ---
Fall HPI - General Chief Complaint: Fall Stated Complaint: fall Time Seen by Provider: 02/04/19 15:44 Source: patient Mode of arrival: wheelchair - History of Present Illness Initial Comments: Patient is an 83-year-old female presenting to emergency Department with a chief complaint of fall. Patient reports she was walking out of her house one hour ago when she tripped over the last step and fell on the right side of her body. Patient reports most of the pain is located in the right knee which she had an arthroplasty on. Patient also reports tenderness in the right hip. Patient is also complaining of a "bump" in the occipital region. Patient denies loss of conscious time of incident. Patient reports she called her neighbors who came in home her up. Patient denies any lightheadedness, dizziness, blurred vision, nausea or vomiting. Patient hasn't chest pain chest tightness or shortness of breath. The patient's guardian called and said the patient is abusing illegal substances and advised not to prescribe any benzos and narcotics. - Related Data Home Medications Medication Instructions Recorded Confirmed Acetaminophen Tab [Tylenol Tab] 500 - 1,000 mg PO Q6H PRN 08/08/18 02/04/19 Latanoprost [Xalatan 0.005%] 1 drop LEFT EYE DAILY 08/08/18 02/04/19 Timolol 0.5% Ophth Soln [Timoptic 1 drop BOTH EYES DAILY 08/08/18 02/04/19 0.5% Ophth Soln] predniSONE 7.5 mg PO BID 08/08/18 02/04/19 Allergies Allergy/AdvReac Type Severity Reaction Status Date / Time celecoxib [From Celebrex] AdvReac Swelling Verified 02/04/19 16:53 methotrexate AdvReac Unknown Verified 02/04/19 16:53 Penicillins AdvReac Rash/Hives Verified 02/04/19 16:53 Review of Systems ROS Statement: Those systems with pertinent positive or pertinent negative responses have been documented in the HPI. ROS Other: All systems not noted in ROS Statement are negative. Past Medical History Past Medical History: Rheumatoid Arthritis (RA) Additional Past Medical History / Comment(s): hx arrhythmia/bradycardia, arthritis, Pacemaker, UTI, low sodium History of Any Multi-Drug Resistant Organisms: None Reported Past Surgical History: Cholecystectomy, Hysterectomy, Pacemaker, Tonsillectomy Additional Past Surgical History / Comment(s): knee surgery jeremy, thyroid surgery(nodule on parathyroid removed) Past Anesthesia/Blood Transfusion Reactions: No Reported Reaction Type of Cardiac Device: Unknown Device Placement Date:: unknown Past Psychological History: Anxiety Smoking Status: Former smoker Past Alcohol Use History: None Reported Past Drug Use History: None Reported - Past Family History Mother Family Medical History: Dementia, Diabetes Mellitus Brother(s) Family Medical History: Dementia, Diabetes Mellitus General Exam Limitations: no limitations General appearance: alert, in no apparent distress Head exam: Present: normocephalic, normal inspection. Absent: atraumatic (Hematoma measuring 37 m in diameter in the right occipital region) Eye exam: Present: normal appearance, PERRL, EOMI. Absent: periorbital swelling, periorbital tenderness Pupils: Present: normal accommodation ENT exam: Present: normal exam, normal oropharynx, mucous membranes moist, TM's normal bilaterally, normal external ear exam, other (No fractured teeth or any oral hemorrhage.) Neck exam: Present: normal inspection, full ROM Respiratory exam: Present: normal lung sounds bilaterally Cardiovascular Exam: Present: regular rate, normal rhythm, normal heart sounds GI/Abdominal exam: Present: soft Extremities exam: Present: tenderness (Right hip tenderness and right knee tenderness with palpation.), normal capillary refill, other (+2 ulnar and radial pulses bilaterally. +2 dorsalis pedis and posterior tibialis bilaterally). Absent: normal inspection (Hematoma measuring 3 cm in diameter on the lateral aspect her right upper leg), full ROM (Limited range of motion in the right knee with flexion) Back exam: Present: normal inspection, full ROM. Absent: tenderness, CVA tenderness (R), CVA tenderness (L) Neurological exam: Present: alert, oriented X3 Psychiatric exam: Present: normal affect, normal mood Skin exam: Present: warm, intact, normal color Course Vital Signs 02/04/19 02/04/19 15:38 19:22 Temperature 97.6 F 98.0 F Pulse Rate 74 87 Respiratory 18 16 Rate Blood Pressure 104/64 110/70 O2 Sat by Pulse 99 99 Oximetry Medical Decision Making - Medical Decision Making Patient is a 83-year-old female presents emergency Department with a chief complaint of a fall. CT of the brain and C-spine is negative for acute fr actures, dislocations, hemorrhage, midline shift. X-rays of the right hip, right knee and chest are unremarkable. I did notice a hematoma on the right occipital region where patient had a traumatic head injury. There is also an abrasion in the region as well. Patient does have a hematoma on the right hip. There is swelling at the right knee. Patient advised to follow with equipment sales specialist if symptoms do not improve. Patient vised alternate between Tylenol and ibuprofen for pain control. Her son reports that he and his sister will be alternating for next 2 weeks to take care for the patient. Patient typically ambulates using a walker at home. Patient was given analgesia. Patient was able to ambulate using a walker per to discharge. Patient is to follow-up with primary care. Strict return parameters were thoroughly discussed with the patient was understanding and agreeable. Case discussed with physician. Disposition Clinical Impression: Fall Disposition: HOME SELF-CARE Condition: Stable Instructions (If sedation given, give patient instructions): Fall Prevention for Older Adults (ED) Additional Instructions: Please follow with primary care. Alternate between Tylenol and ibuprofen for pain control. Please return to emergency department if symptoms worsen. Is patient prescribed a controlled substance at d/c from ED?: No Referrals: Soham Lao DO [Primary Care Provider] - 1-2 days Kan Fajardo MD [Medical Doctor] - 1-2 days Time of Disposition: 17:54
--- NOTE | 2019-02-04 17:05 | CT ---
EXAMINATION TYPE: CT brain arjun herrera DATE OF EXAM: 02/04/2019 COMPARISON: None HISTORY: pain post fall, posterior head laceration/contusion Neck pain CT DLP: 1196.6 mGycm Automated exposure control for dose reduction was used. TECHNIQUE: CT scan of the head and cervical spine are performed without contrast. FINDINGS: There is cerebral cortical atrophy. There is no mass effect nor midline shift. There is n o sign of intracranial hemorrhage. There is frontal hyperostosis. Calvarium is intact. There is some straightening of the cervical spine. There is degenerative disc space down from C3 to C 7 with spur formation. There is more severe disc disease at C3-4. There is mild hypertrophic facet ar thropathy. Skull base is intact. IMPRESSION: Cerebral atrophy. No acute intracranial abnormality. Spondylotic changes in the cervical spine. No fracture.
--- NOTE | 2019-02-04 17:06 | XR ---
EXAMINATION TYPE: XR Hip Complete RT DATE OF EXAM: 02/04/2019 COMPARISON: NONE HISTORY: Hip pain TECHNIQUE: 2 views FINDINGS: There is acetabular spurring. I see no fracture nor dislocation. Hip joint space is fairly normal. Sacroiliac joint is intact. IMPRESSION: Osteopenia. No acute abnormality of the right hip.
--- NOTE | 2019-02-04 17:07 | XR ---
EXAMINATION TYPE: XR knee limited RT DATE OF EXAM: 02/04/2019 COMPARISON: NONE HISTORY: Knee pain TECHNIQUE: 2 views FINDINGS: There is right knee prosthesis. Components are in anatomic position. There is mild anterior soft tissue swelling. IMPRESSION: Soft tissue swelling. No fracture seen. Osteopenia.
--- NOTE | 2019-02-04 17:13 | XR ---
EXAMINATION TYPE: XR chest 2V DATE OF EXAM: 02/04/2019 COMPARISON: 08/10/2017 HISTORY: 08/10/2017 TECHNIQUE: Frontal and lateral views of the chest are obtained. FINDINGS: Heart is normal. Lungs are clear of consolidation. There is large calcified right paratrac heal granuloma. There is a left axillary pacemaker. There is significant arthritic disease in both sh oulder joints that could relate to inflammatory arthritis. There is no pleural effusion. Bony thorax is intact. IMPRESSION: No active cardiopulmonary disease. Old granulomatous disease. No change.
[2019-02-04] MEDS ORDERED: Acetaminophen-Codeine 300-30mg TAB PO STA (18:02)
[2019-02-04] MEDS ORDERED: ACET/COD 300 MG/30 MG STARTER PACK 6 TAB BTL PO STA (18:02)
[2019-02-04 19:24] VITALS: BP 110/70; PULSE 87; RESP 16; TEMP 98
== END 2019-02-04 19:15 | disposition home or self-care (01) ==
LOC: EC 15:10
DX: S00.03XA Contusion of scalp, initial encounter (principal); S70.01XA Contusion of right hip, initial encounter; M25.561 Pain in right knee; M79.89 Other specified soft tissue disorders; M06.9 Rheumatoid arthritis, unspecified; Z79.52 Long term (current) use of systemic steroids; Z88.0 Allergy status to penicillin; Z88.6 Allergy status to analgesic agent; Z88.8 Allergy status to other drugs, medicaments and biological substances; Z96.651 Presence of right artificial knee joint; Z87.891 Personal history of nicotine dependence; Z95.0 Presence of cardiac pacemaker; W01.0XXA Fall on same level from slipping, tripping and stumbling without subsequent striking against object, initial encounter; Y93.01 Activity, walking, marching and hiking; Y92.89 Other specified places as the place of occurrence of the external cause
CPT/HCPCS: 70450; 71046; 72125; 73502; 99284

== ENCOUNTER 2019-09-19 09:45 | Day surgery (SDC) | payer MEDICARE, OTHER ==
[~2019-09-19 09:45] MED LIST: CLINDAMYCIN 600 MG in SODIUM CHLORIDE 0.9% IRRIGATIO 250 ML IRRIGATION ONE; CLINDAMYCIN 900 MG in DEXTROSE 5% IN WATER 50 ML IVPB ONE; SODIUM CHLORIDE 0.9% 1,000 ML IV SCH
[2019-09-19] MEDS ORDERED: SODIUM CHLORIDE 0.9% 500 ML 500 ML IV ONE (10:15)
[2019-09-19 10:22] LABS: Glucose,Whole Blood 95 mg/dL (75-99)
[2019-09-19 10:27] VITALS: RESP 16; TEMP 97.9
[2019-09-19 10:35] LABS: Anisocytosis Slight; Basophils % (A) 0 %; Eosinophils # (A) 0.1 k/uL (0-0.7); Eosinophils % (A) 1 %; HCT 37.2 % (34.0-46.0); HGB 11.2 gm/dL (11.4-16.0); Hypochromasia Marked; Lymphocytes # (A) 0.6 k/uL (1.0-4.8); Lymphocytes % (A) 5 %; MCH 23.3 pg (25.0-35.0); MCHC 30.1 g/dL (31.0-37.0); MCV 77.3 fL (80.0-100.0); Mean Platelet Volume 6.5; Microcytosis Slight; Monocytes # (A) 0.5 k/uL (0-1.0); Monocytes % (A) 4 %; Neutrophils # (A) 12.2 k/uL (1.3-7.7); Neutrophils % (A) 90 %; Platelet Count 405 k/uL (150-450); RDW 16.3 % (11.5-15.5); WBC 13.5 k/uL (3.8-10.6)
[2019-09-19] MEDS ORDERED: fentaNYL (PF) 50 MCG/ML 2 ML AMP ONE (10:46)
[2019-09-19] MEDS ORDERED: LIDOCAINE 1% INJ 10MG/ML (20 ML MDV) ONE (10:47)
[2019-09-19] MEDS ORDERED: fentaNYL (PF) 50 MCG/ML 2 ML AMP IV ONE (10:47)
[2019-09-19] MEDS ORDERED: LIDOCAINE 1% INJ 10MG/ML (20 ML MDV) SQ ONE ×2 (10:50→11:03)
[2019-09-19 10:51] LABS: African American GFR (CKD) >90 (>60 ml/min/1.73 sqM); Anion Gap 7 mmol/L; Blood Urea Nitrogen 18 mg/dL (7-17); Calcium 8.6 mg/dL (8.4-10.2); Carbon Dioxide 28 mmol/L (22-30); Chloride 101 mmol/L (98-107); Glucose 93 mg/dL (74-99); Non-African American GFR(CKD) >90 (>60 ml/min/1.73 sqM); Potassium 3.8 mmol/L (3.5-5.1); Sodium 136 mmol/L (137-145)
[2019-09-19] MEDS ORDERED: CLINDAMYCIN 150 MG CAP PO STA (11:28)
[2019-09-19] MEDS ORDERED: ACETAMINOPHEN TAB 325 MG TAB PO PRN (11:34)
--- NOTE | 2019-09-19 13:36 | CE ---
CARDIAC ELECTROPHYSIOLOGY REPORT DATE OF SERVICE: 09/19/2019. PROCEDURE: 1. Explantation of a pulse generator from the left infraclavicular location. 2. Implantation of a new pulse generator for a dual-chamber pacemaker in the left infraclavicular location. PERFORMED BY: Dr. Niels Crawford. Moderate conscious sedation time was 43 minutes. Patient was administered fentanyl. Oxygen saturation, hemodynamics and EKG were monitored closely. CLINICAL INFORMATION: Mrs. Yuly Alonso is an elderly lady with a dual-chamber permanent pacemaker that has reached end of life. The last generator change was performed by [place] in 2003. She was brought in for the procedure electively as the device had reached end of life. The patient was appropriately sedated. PROCEDURE NOTE: Under strict aseptic precautions and local anesthesia, a linear incision was made over the pacemaker. Blunt dissection was performed with cautery. The old pulse generator was explanted very carefully. The pacemaker leads were unscrewed. The leads were checked for thresholds and sensitivities. The new pulse generator was then connected and the new pulse generator was kept back in the pocket and the wound was closed in 2 layers very carefully. The patient received antibiotic infusion and the pocket was also irrigated with antibiotic locally. Antibiotic was infused at the start of the procedure during the incision. The patient tolerated the procedure well without complications. DETAILS: Explanted device was made by [employer] and the model #1294, serial #[id number]. The new device that was implanted was manufactured by [employer] MRI 2272, serial #[id number]. The atrial lead was a [employer] lead, which was unchanged. This lead was model 4269, serial #[id number]. The ventricular lead was also made by [employer] model 4260, serial #[id number]. These leads were originally implanted in May 1990 The atrial threshold was 1.25 V at 0.5 milliseconds. The P waves were 1.4 mV. The lead impedance was 380 ohms. The ventricular threshold was 1.25 V at 0.5 milliseconds. The R-waves were 5.5 mV. The lead impedance was 460 ohms. The pacemaker was set in a DDDR mode, a low rate of 50, high rate of 100, paced AV delay of 275 milliseconds and sensed AV delay of 250 milliseconds. The patient tolerated the procedure well. She will be discharged later on today and will see me in the office in one week for a device check and wound check. I discussed the details with the patient as well as her daughter. Procedure was performed uneventfully without any complications or issues. BENIGNO / ROJAS: [id number] /
[2019-09-19 16:14] VITALS: BP 111/66; PULSE 62
== END 2019-09-19 15:45 | disposition home or self-care (01) ==
LOC: CATHEP 09:45
PROVIDERS: ATTEND Internal Medicine Interventional Cardiology
DX: Z45.010 Encounter for checking and testing of cardiac pacemaker pulse generator [battery] (principal); I95.89 Other hypotension; I10 Essential (primary) hypertension; D50.9 Iron deficiency anemia, unspecified; M06.9 Rheumatoid arthritis, unspecified; F17.210 Nicotine dependence, cigarettes, uncomplicated; Z79.899 Other long term (current) drug therapy; Z79.52 Long term (current) use of systemic steroids; Z88.0 Allergy status to penicillin; Z88.5 Allergy status to narcotic agent; Z88.6 Allergy status to analgesic agent
CPT/HCPCS: 33228; 80048; 85025; C1785; J2001; J3010

== ENCOUNTER → 2020-03-04 | Outpatient (CLI) | payer MEDICARE ==
--- NOTE | 2020-03-05 08:15 | CT ---
EXAMINATION TYPE: CT brain wo con DATE OF EXAM: 03/04/2020 HISTORY: Intractable headaches CT DLP: 1133.30 mGycm. Automated Exposure Control for Dose Reduction was Utilized. TECHNIQUE: CT scan of the head is performed without contrast. COMPARISON: CT brain October 05, 2018.. FINDINGS: There is no acute intracranial hemorrhage or midline shift identified. There is diffuse v entricular and sulcal prominence consistent with diffuse age-related cerebral atrophy. There is low- attenuation in the periventricular white matter consistent with chronic small vessel ischemic change. Hyperostosis frontalis is redemonstrated. Vascular calcifications distal internal carotid arteries is again seen. The globes are intact and the visualized sinuses are clear. IMPRESSION: No acute intracranial hemorrhage or midline shift. There is moderate diffuse age-relate d cerebral atrophy and chronic small vessel ischemic change redemonstrated. No significant change fr om prior study.
== END | disposition home or self-care (01) ==
LOC: RADCTMAIN 16:18
PROVIDERS: ATTEND Family Medicine Adult Medicine
DX: I67.82 Cerebral ischemia (principal); G31.1 Senile degeneration of brain, not elsewhere classified
CPT/HCPCS: 70450